=== PATIENT | female | born 1960 | race Caucasian/White ===

== ENCOUNTER → 2016-09-14 | Outpatient (CLI) | payer BC ==
--- NOTE | 2016-09-14 08:02 | US ---
EXAMINATION TYPE: US liver DATE OF EXAM: 09/14/2016 COMPARISON: Prior liver ultrasound July 26, 2015 CLINICAL HISTORY: K76.0 Steatosis of Liver. no complaints of pain, abn labs EXAM MEASUREMENTS: Liver Length: 17.8 cm CBD: 0.5 cm Right Kidney: 10.9 x 4.9 x 5.0 cm Pancreas: tail gassed out, visualized portions wnl Liver: attenuating, upper limits in size, hepatopedal flow Gallbladder: Surgically absent CBD: wnl Right Kidney: wnl Visualized pancreas shows no worrisome intrahepatic mass or ductal dilatation. IVC is seen near hepat ic dome. Visualized liver remains heterogeneously hyperechoic in appearance. No intrahepatic ductal d ilatation is seen. Evaluation for focal masses is suboptimal due to the heterogeneity. Gallbladder is surgically absent. Monophasic hepatopedal flow is seen in the portal vein on last image taken. IMPRESSION: Persistent heterogeneous hyperechoic appearance of liver is likely on basis of diffuse fa tty infiltration. No significant change from prior.
== END ==
LOC: RADUSWWP 07:30
PROVIDERS: ATTEND Family Medicine
DX: K76.0 Fatty (change of) liver, not elsewhere classified (principal)
CPT/HCPCS: 76705

== ENCOUNTER → 2019-03-25 | Outpatient (CLI) | payer BC ==
--- NOTE | 2019-03-25 09:47 | US ---
EXAMINATION TYPE: US abdomen complete DATE OF EXAM: 03/25/2019 COMPARISON: US 09/14/2016 CLINICAL HISTORY: 58-year-old female R74.8 elevated liver enzymes. Patient states no problems TECHNIQUE: Multiple sonographic images of the abdomen are obtained. FINDINGS: EXAM MEASUREMENTS: Liver Length: 16.8 cm Gallbladder Wall: Surgically absent CBD: 0.4 cm Spleen: 10.6 cm Right Kidney: 11.0 x 5.3 x 5.2 cm Left Kidney: 11.5 x 5.3 x 5.2 cm Pancreas: Tail obscured by overlying bowel gas, visualized portions wnl Liver: Diffusely echogenic appearance. Attenuating parenchyma. The secondary limits assessment for fo garrick lesion. Gallbladder: Surgically absent Evidence for sonographic Kimball's sign: No CBD: wnl as visualized, distal portion obscured by bowel gas Spleen: wnl Kidneys: No hydronephrosis on either side. Upper IVC: wnl Abd Aorta: Atherosclerotic changes visualized IMPRESSION: 1. Status post cholecystectomy. No biliary ductal dilatation. 2. Moderate to severe hepatic steatosis. Correlate with LFTs, lipid profile, and patient risk factors .
== END | disposition home or self-care (01) ==
LOC: RADUSWWP 07:30
PROVIDERS: ATTEND Family Medicine
DX: K76.0 Fatty (change of) liver, not elsewhere classified (principal); Z90.49 Acquired absence of other specified parts of digestive tract
CPT/HCPCS: 76700

== ENCOUNTER → 2020-10-22 | Outpatient (CLI) | payer BC ==
[2020-10-22 10:51] VITALS: BP 146/86; PULSE 71; RESP 16; TEMP 97.9
--- NOTE | 2020-10-22 11:08 | P.GSHP ---
History of Present Illness H&P Date: 10/22/20 Chief Complaint: bilateral mastectomy high risk no cancer Lisette is a 60 year old white female status post bilateral mastectomy in 2013 for high risk and having had multiple biopsies. She had reconstruction done with Dr. Samaniego. His bilateral subpectoral implant. She is not complaining of any lungs masses or nodules on her chest wall. Patient has a personal history of melanoma on her right leg/no evidence of recurrent Caffeine: occasional nicotine: none, 1 cigarette/day chocolate: occasional hormones: none BCP: in past about 20 years Family history: maternal aunt: thyroid cancer maternal uncle: pancreatic cancer Personal history of melanoma right leg, 2000 Hormonal History: menarche: 15 , age at first : 25, breast fed: no menopause: ablation in 's hormones: none Surgical history: Bilateral mastectomy with subpectoral implant reconstruction Lymph node biopsy and groin Skin biopsy chest wall Cholecystectomy Axillary node biopsy Medical history: Nonalcoholic steatohepatitis Social History: nicotine: used to smoke 1-1/2 PPD now down to 1 cigarette/day alcohol: none drugs: none - Constitutional Constitutional: Denies chills, Denies fever - EENT Eyes: denies blurred vision, denies pain Ears: deny: decreased hearing, tinnitus Ears, nose, mouth and throat: Denies headache, Denies sore throat - Breasts Breasts: bilateral: as per HPI - Cardiovascular Cardiovascular: Denies chest pain, Denies shortness of breath - Respiratory Respiratory: Denies cough, Denies 7 - Gastrointestinal Gastrointestinal: Denies abdominal pain, Denies diarrhea, Denies nausea, Denies vomiting - Genitourinary (Female) Genitourinary: Denies dysuria, Denies hematuria - Menstruation Menstruation: Reports postmenopausal - Musculoskeletal Musculoskeletal: Denies myalgias - Integumentary Integumentary: Denies pruritus, Denies rash - Neurological Neurological: Denies numbness, Denies weakness - Psychiatric Psychiatric: Denies anxiety, Denies depression - Endocrine Endocrine: Reports weight change, Denies fatigue - Hematologic/Lymphatic Comment: none - Allergic/Immunologic Allergic/Immunologic: Reports as per HPI, Reports seasonal allergies Past Medical History Past Medical History: Cancer, GERD/Reflux, Hyperlipidemia Additional Past Medical History / Comment(s): HX OF MELANOMA ON LEG, PRE CA JIMMY BREAST, STATES HX OF HYPOGLYCEMIA History of Any Multi-Drug Resistant Organisms: None Reported Past Surgical History: Breast Surgery, Tubal Ligation, Uterine Ablation Additional Past Surgical History / Comment(s): JIMMY MASTECTOMY WITH RECONSTRUCTION, LYMPH NODES REMOVED FROM GROIN, Past Anesthesia/Blood Transfusion Reactions: Postoperative Nausea & Vomiting (PONV) Past Psychological History: Anxiety Smoking Status: Never smoker Past Alcohol Use History: None Reported Past Drug Use History: None Reported Medications and Allergies Home Medications Medication Instructions Recorded Confirmed Type Cholecalciferol [Vitamin D3] 5,000 unit PO DAILY 01/12/14 10/22/20 History Levothyroxine Sodium [Synthroid] 75 mcg PO DAILY 01/12/14 10/22/20 History Vitamin E (Dl,Tocopheryl Acet) 400 unit PO DAILY 01/12/14 10/22/20 History [Vitamin E] Escitalopram [Lexapro] 10 mg PO DAILY 09/02/15 10/22/20 History Fenofibrate 54 mg PO DAILY 09/02/15 10/22/20 History [place]-3 Fatty Acids [[place]-3] 3,000 mg PO DAILY 09/02/15 10/22/20 History Acyclovir 400 mg PO DAILY PRN 10/22/20 10/22/20 History Cinnamon Bark [Cinnamon] 500 mg PO DAILY 10/22/20 10/22/20 History Empaglifloz/Linaglip/Metformin 1 tab PO DAILY 10/22/20 10/22/20 History [Trijardy Xr 25-5-1,000 mg Tab] Famotidine 10 mg PO DAILY 10/22/20 10/22/20 History Rosuvastatin [Crestor] 20 mg PO HS 10/22/20 10/22/20 History Allergies Allergy/AdvReac Type Severity Reaction Status Date / Time clarithromycin [From Biaxin] AdvReac METALLIC Verified 10/22/20 10:06 TASTE Surgical - Exam Vital Signs Temp Pulse Resp BP Pulse Ox 97.9 F 71 16 146/86 96 10/22/20 10:38 10/22/20 10:38 10/22/20 10:38 10/22/20 10:38 10/22/20 10:38 BMI 29.8 - General no distress - Eyes normal ocular movement - ENT no hearing loss, no congestion - Neck no masses, trachea midline - Respiratory normal respiratory effort, clear to auscultation - Cardiovascular Rhythm: regular Heart Sounds: normal: S1, S2 - Abdomen Abdomen: soft, non tender, no guarding, no rigid, no rebound - Integumentary normal turgor - Neurologic no disoriented, no combative - Musculoskeletal normal gait, normal posture - Psychiatric oriented to time, oriented to person, oriented to place, speech is normal, memory intact Breast Exam: BRA: 34DD inspection: No evidence of chest wall recurrence Palpation: Right chest wall: Incision clean and dry Evidence of recurrence Right axilla: No adenopathy of concern Left chest wall: No evidence of recurrence Left axilla: No adenopathy of concern Assessment and Plan Assessment: Impression: 1. no evidence of cancer Plan: 1. yearly examination CC: Dr. Carroll
== END ==
LOC: WWCWWP 09:54
PROVIDERS: ATTEND Surgery
DX: Z09 Encounter for follow-up examination after completed treatment for conditions other than malignant neoplasm (principal); K21.9 Gastro-esophageal reflux disease without esophagitis; E78.5 Hyperlipidemia, unspecified; F41.9 Anxiety disorder, unspecified; Z79.899 Other long term (current) drug therapy; Z90.13 Acquired absence of bilateral breasts and nipples; Z85.820 Personal history of malignant melanoma of skin; Z88.1 Allergy status to other antibiotic agents

== ENCOUNTER → 2022-01-19 | Outpatient (CLI) | payer BC, OTHER ==
[2022-01-19 10:01] VITALS: BP 144/85; PULSE 75; RESP 17; TEMP 98.8
--- NOTE | 2022-01-19 10:21 | P.PN ---
Subjective Progress Note Date: 01/19/22 Principal diagnosis: bilateral mastectomies Lisette is a 61 year old white female status post bilateral mastectomy in 2013 for high risk and having had multiple biopsies. She had reconstruction done with Dr. Samaniego. His bilateral subpectoral implant. She is not complaining of any lungs masses or nodules on her chest wall. Patient has a personal history of melanoma on her right leg/no evidence of recurrent Caffeine: occasional nicotine: none, 1 cigarette/day chocolate: occasional hormones: none BCP: in past about 20 years Family history: maternal aunt: thyroid cancer maternal uncle: pancreatic cancer Personal history of melanoma right leg, 2000 Hormonal History: menarche: 15 , age at first : 25, breast fed: no menopause: ablation in 's hormones: none Surgical history: Bilateral mastectomy with subpectoral implant reconstruction Lymph node biopsy and groin Skin biopsy chest wall Cholecystectomy Axillary node biopsy Medical history: Nonalcoholic steatohepatitis Social History: nicotine: used to smoke 1-1/2 PPD now down to 1 cigarette/day alcohol: none drugs: none - Constitutional Constitutional: Denies chills, Denies fever - EENT Eyes: denies blurred vision, denies pain Ears: deny: decreased hearing, tinnitus Ears, nose, mouth and throat: Denies headache, Denies sore throat - Breasts Breasts: bilateral: as per HPI - Cardiovascular Cardiovascular: Denies chest pain, Denies shortness of breath - Respiratory Respiratory: Denies cough - Gastrointestinal Gastrointestinal: Denies abdominal pain, Denies diarrhea, Denies nausea, Denies vomiting - Genitourinary (Female) Genitourinary: Denies dysuria, Denies hematuria - Menstruation Menstruation: Reports postmenopausal - Musculoskeletal Musculoskeletal: Denies myalgias - Integumentary Integumentary: Denies pruritus, Denies rash - Neurological Neurological: Denies numbness, Denies weakness - Psychiatric Psychiatric: Denies anxiety, Denies depression - Endocrine Endocrine: Reports weight change, Denies fatigue - Hematologic/Lymphatic Comment: none - Allergic/Immunologic Allergic/Immunologic: Reports as per HPI, Reports seasonal allergies Past Medical History Past Medical History: Cancer, GERD/Reflux, Hyperlipidemia Additional Past Medical History / Comment(s): HX OF MELANOMA ON LEG, PRE CA JIMMY BREAST, STATES HX OF HYPOGLYCEMIA History of Any Multi-Drug Resistant Organisms: None Reported Past Surgical History: Breast Surgery, Tubal Ligation, Uterine Ablation Additional Past Surgical History / Comment(s): JIMMY MASTECTOMY WITH RECONSTRUCTION, LYMPH NODES REMOVED FROM GROIN, Past Anesthesia/Blood Transfusion Reactions: Postoperative Nausea & Vomiting (P ONV) Past Psychological History: Anxiety Smoking Status: Never smoker Past Alcohol Use History: None Reported Past Drug Use History: None Reported Medications and Allergies Home Medications Medication Instructions Recorded Confirmed Type Cholecalciferol [Vitamin D3] 5,000 unit PO DAILY 01/12/14 10/22/20 History Levothyroxine Sodium [Synthroid] 75 mcg PO DAILY 01/12/14 10/22/20 History Vitamin E (Dl,Tocopheryl Acet) 400 unit PO DAILY 01/12/14 10/22/20 History [Vitamin E] Escitalopram [Lexapro] 10 mg PO DAILY 09/02/15 10/22/20 History Fenofibrate 54 mg PO DAILY 09/02/15 10/22/20 History [place]-3 Fatty Acids [[place]-3] 3,000 mg PO DAILY 09/02/15 10/22/20 History Acyclovir 400 mg PO DAILY PRN 10/22/20 10/22/20 History Cinnamon Bark [Cinnamon] 500 mg PO DAILY 10/22/20 10/22/20 History Empaglifloz/Linaglip/Metformin 1 tab PO DAILY 10/22/20 10/22/20 History [Trijardy Xr 25-5-1,000 mg Tab] Famotidine 10 mg PO DAILY 10/22/20 10/22/20 History Rosuvastatin [Crestor] 20 mg PO HS 10/22/20 10/22/20 History Allergies Allergy/AdvReac Type Severity Reaction Status Date / Time clarithromycin [From Biaxin] AdvReac METALLIC Verified 10/22/20 10:06 TASTE Objective - Vital Signs Vital signs: Intake & Output 01/18/22 01/19/22 01/19/22 18:59 06:59 18:59 Weight 80.739 kg - Constitutional General appearance: Present: cooperative - EENT Eyes: Present: EOMI ENT: Present: hearing grossly normal - Neck Neck: Present: normal ROM - Respiratory Respiratory: bilateral: CTA - Cardiovascular Rhythm: regular Heart sounds: normal: S1, S2 - Gastrointestinal General gastrointestinal: Present: soft - Integumentary Integumentary: Present: normal turgor - Musculoskeletal Musculoskeletal: Present: gait normal - Psychiatric Psychiatric: Present: A&O x's 3, appropriate affect, intact judgment & insight - Additional findings Additional findings: Chest wall exam: right chest wall: Implant in place, no evidence of any cancer Right axilla: No adenopathy of concern Left chest wall: Implant in place: No evidence of any cancer Left axilla: No adenopathy of concern Assessment and Plan Assessment: Impression: Patient doing well at this time no evidence of any breast cancer Plan: Repeat chest wall examination 1 year CC: DR. Carroll
== END ==
LOC: WWCWWP 09:17
PROVIDERS: ATTEND Surgery
DX: Z98.82 Breast implant status (principal); Z88.1 Allergy status to other antibiotic agents

== ENCOUNTER → 2023-09-06 | Outpatient (CLI) | payer BC ==
[2023-09-06 10:00] VITALS: BP 147/74; PULSE 71; RESP 16; TEMP 97.8
--- NOTE | 2023-09-06 10:16 | P.PN ---
Subjective Progress Note Date: 09/06/23 09-06-23 Principal diagnosis: bilateral mastectomies Lisette is a 63 year old white female status post bilateral mastectomy in 2012 for high risk and having had multiple biopsies. She had reconstruction done with Dr. Samaniego. She has bilateral subpectoral implant reconstruction. She is not complaining of any lumps masses or nodules on her chest wall. Patient has a personal history of melanoma on her right leg/no evidence of recurrent Her 2022. Caffeine: occasional nicotine: none, 1 cigarette/day chocolate: occasional hormones: none BCP: in past about 20 years Family history: maternal aunt: thyroid cancer maternal uncle: pancreatic cancer Personal history of melanoma right leg, 2000 Hormonal History: menarche: 15 , age at first : 25, breast fed: no menopause: ablation in ' hormones: none Surgical history: Bilateral mastectomy with subpectoral implant reconstruction Lymph node biopsy and groin Skin biopsy chest wall Cholecystectomy Axillary node biopsy Medical history: Nonalcoholic steatohepatitis Social History: nicotine: used to smoke 1-/2 PPD now alcohol: none drugs: none - Constitutional Constitutional: Denies chills, Denies fever - EENT Eyes: denies blurred vision, denies pain Ears: deny: decreased hearing, tinnitus Ears, nose, mouth and throat: Denies headache, Denies sore throat - Breasts Breasts: bilateral: as per HPI - Cardiovascular Cardiovascular: Denies chest pain, Denies shortness of breath - Respiratory Respiratory: Denies cough - Gastrointestinal Gastrointestinal: Denies abdominal pain, Denies diarrhea, Denies nausea, Denies vomiting - Genitourinary (Female) Genitourinary: Denies dysuria, Denies hematuria - Menstruation Menstruation: Reports postmenopausal - Musculoskeletal Musculoskeletal: Denies myalgias - Integumentary Integumentary: Denies pruritus, Denies rash - Neurological Neurological: Denies numbness, Denies weakness - Psychiatric Psychiatric: Denies anxiety, Denies depression - Endocrine Endocrine: Reports weight change, Denies fatigue - Hematologic/Lymphatic Comment: none - Allergic/Immunologic Allergic/Immunologic: Reports as per HPI, Reports seasonal allergies Past Medical History Past Medical History: Cancer, GERD/Reflux, Hyperlipidemia Additional Past Medical History / Comment(s): HX OF MELANOMA ON LEG, PRE CA JIMMY BREAST, STATES HX OF HYPOGLYCEMIA History of Any Multi-Drug Resistant Organisms: None Reported Past Surgical History: Breast Surgery, Tubal Ligation, Uterine Ablation Additional Past Surgical History / Comment(s): JIMMY MASTECTOMY WITH RECONSTRUCTION, LYMPH NODES REMOVED FROM GROIN, Past Anesthesia/Blood Transfusion Reactions: Postoperative Nausea & Vomiting (PONV) Past Psychological History: Anxiety Smoking Status: Never smoker Past Alcohol Use History: None Reported Past Drug Use History: None Reported Medications and Allergies Home Medications Medication Instructions Recorded Confirmed Type Cholecalciferol [Vitamin D3] 5,000 unit PO DAILY 01/12/14 10/22/20 History Levothyroxine Sodium [Synthroid] 75 mcg PO DAILY 01/12/14 10/22/20 History Vitamin E (Dl,Tocopheryl Acet) 400 unit PO DAILY 01/12/14 10/22/20 History [Vitamin E] Escitalopram [Lexapro] 10 mg PO DAILY 09/02/15 10/22/20 History Fenofibrate 54 mg PO DAILY 09/02/15 10/22/20 History [place]-3 Fatty Acids [[place]-3] 3,000 mg PO DAILY 09/02/15 10/22/20 History Acyclovir 400 mg PO DAILY PRN 10/22/20 10/22/20 History Cinnamon Bark [Cinnamon] 500 mg PO DAILY 10/22/20 10/22/20 History Empaglifloz/Linaglip/Metformin 1 tab PO DAILY 10/22/20 10/22/20 History [Trijardy Xr 25-5-1,000 mg Tab] Famotidine 10 mg PO DAILY 10/22/20 10/22/20 History Rosuvastatin [Crestor] 20 mg PO HS 10/22/20 10/22/20 History Allergies Allergy/AdvReac Type Severity Reaction Status Date / Time clarithromycin [From Biaxin] AdvReac METALLIC Verified 10/22/20 10:06 TASTE Objective - Vital Signs Vital signs: Vital Signs Temp 97.8 F 09/06/23 09:58 Pulse 71 09/06/23 09:58 Resp 16 09/06/23 09:58 BP 147/74 09/06/23 09:58 Pulse Ox 96 09/06/23 09:58 FiO2 Intake & Output 09/05/23 09/06/23 09/06/23 18:59 06:59 18:59 Weight 78.018 kg - Constitutional General appearance: Present: cooperative - EENT Eyes: Present: EOMI ENT: Present: hearing grossly normal - Neck Neck: Present: normal ROM - Respiratory Respiratory: bilateral: CTA - Cardiovascular Heart sounds: normal: S1, S2 - Integumentary Integumentary: Present: normal turgor - Musculoskeletal Musculoskeletal: Present: gait normal - Psychiatric Psychiatric: Present: A&O x's 3, appropriate affect, intact judgment & insight - Additional findings Additional findings: Chest wall exam: right chest wall: Implant in place, no evidence of any cancer Right axilla: No adenopathy of concern Left chest wall: Implant in place: No evidence of any cancer Left axilla: No adenopathy of concern Assessment and Plan Assessment: Impression: Patient doing well at this time no evidence of any breast cancer Plan: Repeat chest wall examination 1 year CC: DR. Carroll
== END ==
LOC: WWCWWP 09:06
PROVIDERS: ATTEND Surgery
DX: Z48.817 Encounter for surgical aftercare following surgery on the skin and subcutaneous tissue (principal); Z85.3 Personal history of malignant neoplasm of breast; Z85.820 Personal history of malignant melanoma of skin; Z90.13 Acquired absence of bilateral breasts and nipples; Z88.1 Allergy status to other antibiotic agents

== ENCOUNTER → 2024-08-20 | Outpatient (CLI) | payer BC ==
[2024-08-20 10:13] VITALS: BP 131/83; PULSE 81; RESP 16; TEMP 97.9
--- NOTE | 2024-08-20 11:02 | P.HPOB ---
History of Present Illness H&P Date: 08/20/24 Chief Complaint: The patient is here for her routine gynecologic exam. This is a 64-year-old G2, P2 with an LMP of 2009. The patient is here to establish with this office. She previously saw Dr. Jones for her gynecologic care. She last saw Dr. Jones about 2 years ago for this. She is without gynecologic complaints and denies any postmenopausal bleeding. She is status post endometrial ablation in 2009 and has been amenorrheic since then. She states her menopausal change was very mild and had rare hot flashes. Review of Systems The patient's weight has been stable over the last year. She denies respiratory, cardiac, or G.I. problems. Past Medical History Past Medical History: Cancer, Diabetes Mellitus, GERD/Reflux, Hyperlipidemia, Hypertension, Thyroid Disorder Additional Past Medical History / Comment(s): HX OF MELANOMA ON LEG, PRE CA JIMMY BREAST, STATES HX OF HYPOGLYCEMIA, type 2 diabetes, osteopenia, hypothyroidism. 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 History of Any Multi-Drug Resistant Organisms: None Reported Past Surgical History: Breast Surgery, Section, Cholecystectomy, Tubal Ligation, Uterine Ablation Additional Past Surgical History / Comment(s): JIMMY MASTECTOMY (2012)WITH RECONSTRUCTION(silicone implants), melanoma removed from leg, LYMPH NODES CHRISTINE PRAFUL FROM GROIN, section x 2, several breast biopsies, endometrial ablation in 2009. Colonoscopy 2015. Past Anesthesia/Blood Transfusion Reactions: Postoperative Nausea & Vomiting (PONV) Past Psychological History: Anxiety Smoking Status: Never smoker Past Alcohol Use History: Occasional (2 Drinks per month.) Past Drug Use History: None Reported Additional History: She has been a since 2022. In 2024 she does have a boyfriend but does not live with him and they are not currently sexually active. She is a retired [employer]. She has 2 grandchildren. - Past Family History Mother Family Medical History: Hyperlipidemia, Hypertension Father Family Medical History: Hyperlipidemia, Hypertension, Myocardial Infarction (DC), Renal Disease Additional Family Medical History / Comment(s): Heart valve issues. Medications and Allergies Home Medications Medication Instructions Recorded Confirmed Type Cholecalciferol [Vitamin D3] 5,000 unit PO DAILY 01/12/14 08/20/24 History Levothyroxine Sodium [Synthroid] 75 mcg PO DAILY 01/12/14 08/20/24 History Vitamin E (Dl,Tocopheryl Acet) 400 unit PO DAILY 01/12/14 08/20/24 History [Vitamin E] Escitalopram [Lexapro] 10 mg PO DAILY 09/02/15 08/20/24 History Fenofibrate 54 mg PO DAILY 09/02/15 08/20/24 History Famotidine 10 mg PO DAILY 10/22/20 08/20/24 History Rosuvastatin [Crestor] 20 mg PO HS 10/22/20 08/20/24 History Semaglutide [Ozempic] 0.5 mg INJ WEEKLY 01/19/22 08/20/24 History Dapagliflozin Propanediol [Farxiga] 5 mg PO DAILY 08/20/24 08/20/24 History Losartan [Cozaar] 50 mg PO DAILY 08/20/24 08/20/24 History Allergies Allergy/AdvReac Type Severity Reaction Status Date / Time clarithromycin [From Biaxin] AdvReac METALLIC Verified 08/20/24 10:07 TASTE Exam Vital Signs Temp Pulse Resp BP Pulse Ox 08/20/24 10:08 97.9 F 81 16 131/83 95 Intake and Output 08/19/24 08/20/24 08/20/24 22:59 06:59 14:59 Other: Weight 78.471 kg Height 5 feet 7 inches, weight 173 pounds, BMI 27.1. This is a well-developed well-nourished white female who is alert and oriented times 3 in no acute distress. HEENT: Within normal limits. NECK: Supple without mass or thyromegaly. CHEST AND LUNGS: Clear to auscultation. HEART: Regular rate and rhythm. BREASTS: Are without mass or discharge. AXILLARY EXAM: Negative for adenopathy. BACK: Negative for CVA tenderness. ABDOMEN: Soft, nontender, without palpable masses. PELVIC EXAM: Normal external genitalia with mild atrophy. Cervix and vagina appear normal with mild atrophy. The cervix is somewhat stenotic secondary to atrophy. There is no unusual discharge. There is no evidence of prolapse. The uterus is midposition, nongravid size and nontender. There are no palpable adnexal masses or tenderness. RECTAL EXAM: Rectovaginal exam is negative for mass or tenderness and is negative for occult blood. EXTREMITIES: Nontender. IMPRESSION: 1. 64-year-old menopausal female with normal gynecologic exam. 2. Status post endometrial ablation 2009 and has been amenorrheic since then. 3. History of osteopenia. 4. Status post bilateral mastectomies for precancerous atypical cells with post mastectomy reconstruction with silicone implants. PLAN: 1. Pap smear cotest was performed. 2. Self breast awareness was discussed with the patient. We have also discussed symptoms associated with inflammatory breast cancer. 3. Mammograms have been discontinued because of her history of mastectomies. 4. Osteoporosis prevention was discussed. I have stressed the importance of adequate calcium, vitamin D and regular exercise. Recommended amounts of calcium and vitamin D were also discussed. Recommended repeating the bone density test since her last 1 was on 02/22/2021. The order slip was given to the patient for this. 5. She is probably going to be due for another colonoscopy in the upcoming year. She will discuss this with her PCP. 6. She was advised to return in one year for her annual well woman exam.
== END ==
LOC: WWCWWP 09:54
PROVIDERS: ATTEND Obstetrics & Gynecology
DX: Z01.419 Encounter for gynecological examination (general) (routine) without abnormal findings (principal); N95.1 Menopausal and female climacteric states; M85.80 Other specified disorders of bone density and structure, unspecified site; Z90.13 Acquired absence of bilateral breasts and nipples

== ENCOUNTER → 2024-09-05 | Outpatient (CLI) | payer BC ==
[2024-09-05 10:31] VITALS: BP 126/72; PULSE 69; RESP 17; TEMP 97.9
--- NOTE | 2024-09-05 10:35 | P.PN ---
Subjective Progress Note Date: 09/05/24 Principal diagnosis: high risk breast cancer 09-05-24 Principal diagnosis: bilateral mastectomies Lisette is a 63 year old white female status post bilateral mastectomy in 2012 for high risk and having had multiple biopsies. She had reconstruction done with Dr. Samaniego. She has bilateral subpectoral implant reconstruction with silicone implants. She is not complaining of any lumps masses or nodules on her chest wall. Patient has a personal history of melanoma on her right leg/no evidence of recurrent Her 2022. Caffeine: occasional nicotine: none, 1 cigarette/day chocolate: occasional hormones: none BCP: in past about 20 years Family history: maternal aunt: thyroid cancer maternal uncle: pancreatic cancer Personal history of melanoma right leg, 2000 Hormonal History: menarche: 15 , age at first : 25, breast fed: no menopause: ablation in ' hormones: none Surgical history: Bilateral mastectomy with subpectoral implant reconstruction 2012 Lymph node biopsy and groin Skin biopsy chest wall Cholecystectomy Axillary node biopsy Medical history: Nonalcoholic steatohepatitis Social History: nicotine: used to smoke 1-/2 PPD now alcohol: none drugs: none - Constitutional Constitutional: Denies chills, Denies fever - EENT Eyes: denies blurred vision, denies pain Ears: deny: decreased hearing, tinnitus Ears, nose, mouth and throat: Denies headache, Denies sore throat - Breasts Breasts: bilateral: as per HPI - Cardiovascular Cardiovascular: Denies chest pain, Denies shortness of breath - Respiratory Respiratory: Denies cough - Gastrointestinal Gastrointestinal: Denies abdominal pain, Denies diarrhea, Denies nausea, Denies vomiting - Genitourinary (Female) Genitourinary: Denies dysuria, Denies hematuria - Menstruation Menstruation: Reports postmenopausal - Musculoskeletal Musculoskeletal: Denies myalgias - Integumentary Integumentary: Denies pruritus, Denies rash - Neurological Neurological: Denies numbness, Denies weakness - Psychiatric Psychiatric: Denies anxiety, Denies depression - Endocrine Endocrine: Reports weight change, Denies fatigue - Hematologic/Lymphatic Comment: none - Allergic/Immunologic Allergic/Immunologic: Reports as per HPI, Reports seasonal allergies Past Medical History Past Medical History: Cancer, GERD/Reflux, Hyperlipidemia Additional Past Medical History / Comment(s): HX OF MELANOMA ON LEG, PRE CA JIMMY BREAST, STATES HX OF HYPOGLYCEMIA History of Any Multi-Drug Resistant Organisms: None Reported Past Surgical History: Breast Surgery, Tubal Ligation, Uterine Ablation Additional Past Surgical History / Comment(s): JIMMY MASTECTOMY WITH RECONSTRUCTION, LYMPH NODES REMOVED FROM GROIN, Past Anesthesia/Blood Transfusion Reactions: Postoperative Nausea & Vomiting (PONV) Past Psychological History: Anxiety Smoking Status: Never smoker Past Alcohol Use History: None Reported Past Drug Use History: None Reported Medications and Allergies Home Medications Medication Instructions Recorded Confirmed Type Cholecalciferol [Vitamin D3] 5,000 unit PO DAILY 01/12/14 10/22/20 History Levothyroxine Sodium [Synthroid] 75 mcg PO DAILY 01/12/14 10/22/20 History Vitamin E (Dl,Tocopheryl Acet) 400 unit PO DAILY 01/12/14 10/22/20 History [Vitamin E] Escitalopram [Lexapro] 10 mg PO DAILY 09/02/15 10/22/20 History Fenofibrate 54 mg PO DAILY 09/02/15 10/22/20 History Dawn-3 Fatty Acids [Dawn-3] 3,000 mg PO DAILY 09/02/15 10/22/20 History Acyclovir 400 mg PO DAILY PRN 10/22/20 10/22/20 History Cinnamon Bark [Cinnamon] 500 mg PO DAILY 10/22/20 10/22/20 History Empaglifloz/Linaglip/Metformin 1 tab PO DAILY 10/22/20 10/22/20 History [Trijardy Xr 25-5-1,000 mg Tab] Famotidine 10 mg PO DAILY 10/22/20 10/22/20 History Rosuvastatin [Crestor] 20 mg PO HS 10/22/20 10/22/20 History Allergies Allergy/AdvReac Type Severity Reaction Status Date / Time clarithromycin [From Biaxin] AdvReac METALLIC Verified 10/22/20 10:06 TASTE Objective - Vital Signs Vital signs: Intake & Output 09/04/24 09/05/24 09/05/24 18:59 06:59 18:59 Weight 78.018 kg - Constitutional General appearance: Present: cooperative - EENT Eyes: Present: EOMI ENT: Present: hearing grossly normal - Neck Neck: Present: normal ROM - Respiratory Respiratory: bilateral: CTA - Cardiovascular Rhythm: regular Heart sounds: normal: S1, S2 - Integumentary Integumentary: Present: normal turgor - Musculoskeletal Musculoskeletal: Present: gait normal - Psychiatric Psychiatric: Present: A&O x's 3, appropriate affect, intact judgment & insight - Additional findings Additional findings: Chest wall exam: right chest wall: Implant in place, no evidence of any cancer Right axilla: No adenopathy of concern Left chest wall: Implant in place: No evidence of any cancer Left axilla: No adenopathy of concern Assessment and Plan Assessment: Impression: Patient doing well at this time no evidence of any breast cancer Plan: Repeat chest wall examination 1 year CC: DR. Carroll
== END ==
LOC: WWCWWP 09:32
PROVIDERS: ATTEND Surgery
DX: Z90.13 Acquired absence of bilateral breasts and nipples (principal); Z88.1 Allergy status to other antibiotic agents

== ENCOUNTER → 2024-09-18 | Outpatient (CLI) | payer BC ==
--- NOTE | 2024-09-18 19:49 | BD ---
EXAMINATION TYPE: Axial Bone Density DATE OF EXAM: 09/18/2024 CLINICAL HISTORY: 64 years old Female. ICD-10 CODE: Z780 POSTMENOPAUSAL STATE , Additional History: Height: 65 Weight: 175.6 FRAX RISK QUESTIONS: Alcohol (3 or more units per day): no Family History (Parent hip fracture): no Glucocorticoids (More than 3mos): no (Ex: prednisone, prednisolone, methylprednisolone, dexamethasone, and hydrocortisone). History of Fracture in Adulthood: no Secondary Osteoporosis: 1. Type 1 Diabetes: no 2. Hyperthyroidism: no 3. Menopause before 45: no 4. Malnutrition: no 5. Chronic liver disease: no Rheumatoid Arthritis: no Current Tobacco Use: no RISK FACTORS HISTORY OF: Hip Fracture (Right/Left): no Spine Fracture: no History of Wrist Fracture: no Surgery to Spine/Hip(right/left)/Wrist (right/left): no MEDICATIONS: Thyroid Medications: Synthroid How Long: past 10 years Osteoporosis Medications: no EXAM MEASUREMENTS: Bone mineral densitometry was performed using the [employer]. Bone mineral density as measured about the Lumbar spine is: ----- L1-L4(G/cm2): 1.086 T Score Values are as follows: ----- L1: -1.4 ----- L2: -0.7 ----- L3: -0.7 ----- L4: -0.5 ----- L1-L4: -0.8 Z Score Values are as follows: ----- L1: -0.5 ----- L2: 0.2 ----- L3: 0.2 ----- L4: 0.4 ----- L1-L4: 0.1 Bone mineral density has: decreased -7.0 % since study of: 02/22/2021 Bone mineral density about the R hip (g/cm2): 0.890 Bone mineral density about the L hip (g/cm2): 0.823 T Score values are as follows: -----R Neck: -1.8 -----L Neck: -2.0 -----R Total: -0.9 -----L Total: -1.5 Z Score values are as follows: -----R Neck: -0.8 -----L Neck: -1.0 -----R Total: -0.2 -----L Total: -0.8 Bone mineral density has: decreased -1.9 % since study of: 02/22/2021 FRAX%s: The graph provided illustrates a 10.1% chance for a major osteoporotic fx and a 1.4% chance f or the hips probability for fx in 10 years time. IMPRESSION: Osteopenia (T Score between -2.5 and -1). There is slightly increased risk of fracture and the patient may be considered for treatment. Re-Screen 2-5 years. NOTE: T-SCORE=SD OF THE YOUNG ADULT MEAN. [facility], , 09/18/2024 7:46 PM
== END | disposition home or self-care (01) ==
LOC: RADBDWWP 10:09
PROVIDERS: ATTEND Obstetrics & Gynecology
DX: M85.89 Other specified disorders of bone density and structure, multiple sites (principal); Z78.0 Asymptomatic menopausal state
CPT/HCPCS: 77080